=== PATIENT | male | born 1985 | race Caucasian/White ===

== ENCOUNTER 2017-09-07 23:44 | Emergency (ER) | payer SELFPAY ==
--- NOTE | 2017-09-07 23:55 | EDPHY ---
H & P HPI/ROS: HPI CHIEF COMPLAINT: Alcohol Intoxication HISTORY OF PRESENT ILLNESS: This patient is a 31-year-old male, denies having any significant medical history presents emergency room by EMS and police on an arc hold. Patient states that he drank a large amount of whiskey. He was found on the side of the road vomiting into his book bag. EMS in please make contact with him he was unable to ambulate was brought to the emergency room. No trauma. Past Medical History: No significant medical history Past Surgical History: No significant surgical history Social History: Lives locally, employed. Family History: Noncontributory ROS REVIEW OF SYSTEMS: A comprehensive 10 point review of systems is otherwise negative aside from elements mentioned in the history of present illness. Exam Constitutional Intoxicated, triage nursing summary reviewed, vital signs reviewed, Sleepy, smells of alcohol Eyes normal conjunctivae and sclera, horizontal beating nystagmus consistent acute alcohol intoxication, otherwise pupils equal and react to light HENT normal inspection, atraumatic, moist mucus membranes, no epistaxis, neck supple/ no meningismus, no raccoon eyes. Respiratory clear to auscultation bilaterally, normal breath sounds, no respiratory distress, no wheezing. Cardiovascular rate normal, regular rhythm, no murmur, no edema, distal pulses normal. Gastrointestinal soft, non-tender, no rebound, no guarding, normal bowel sounds, no distension, no pulsatile mass. Genitourinary no CVA tenderness. Musculoskeletal no midline vertebral tenderness, full range of motion, no calf swelling, no tenderness of extremities, no meningismus, good pulses, neurovascularly intact. Skin pink, warm, & dry, no rash, skin atraumatic. Neurologic sleepy, intoxicated with alcohol,, alert and oriented x 3, AAOx3, moves all 4 extremities equally, motor intact, sensory intact, CN II-XII intact , , normal vision, normal speech. Psychiatric normal mood/affect. Heme/Lymph/Immune no lymphadenopathy. Differential Diagnosis: Includes but is not limited to in a particular order acute alcohol intoxication, alcohol abuse, dehydration, electrolyte abnormality , nausea vomiting from acute alcohol intoxication Medical Decision Making: Plan for this patient breath alcohol monitor for worsening of condition. Once sober and has a stable gait he can be discharged to the [facility]. Re-evaluation: 1204AM: Breath ETOH [id number]: Patient ambulated well throughout the emergency room with no difficulty. , cooperative. Clinically sober. Be discharged to the [facility]. Source: Patient, EMS Constitutional: Initial Vital Signs Temperature (C) 36.0 C 09/07/17 23:40 Heart Rate 77 09/07/17 23:40 Respiratory Rate 18 09/07/17 23:40 Blood Pressure 137/82 H 09/07/17 23:40 O2 Sat (%) 95 09/07/17 23:40 O2 Delivery Mode Room Air Allergies/Adverse Reactions: No Known Allergies Allergy (Unverified 09/07/17 23:56) Home Medications: Medication Instructions Recorded NK [No Known Home Meds] 09/07/17 Medical Decision Making - Data Points Medications Given: Discontinued Medications Ondansetron HCl (Zofran Odt) 4 mg PO EDNOW ONE Stop: 09/08/17 01:51 Last Admin: 09/08/17 01:55 Dose: 4 mg Departure - Departure Disposition: Home, Routine, Self-Care Clinical Impression: Alcoholic intoxication Qualifiers: Complication of substance-induced condition: uncomplicated Qualified Code(s): F10.920 - Alcohol use, unspecified with intoxication, uncomplicated Condition: Good Instructions: Alcohol Intoxication (ED), Abuse of Alcohol (ED) Referrals: Patient,NotPresent [Primary Care Provider] - As per Instructions
[2017-09-07 23:57] VITALS: RESP 18
[2017-09-08] MEDS ORDERED: ONDANSETRON DISINTEGRATING 4 MG TAB PO ONE (01:50)
[2017-09-08 02:02] VITALS: BP 103/71; PULSE 64; TEMP 97.7; O2SAT 96
== END 2017-09-08 02:50 | disposition home or self-care (01) ==
LOC: EDUNIT#
DX: F10.920 Alcohol use, unspecified with intoxication, uncomplicated (principal)